=== PATIENT | female | born 1935 | race Caucasian/White ===

== ENCOUNTER 2020-05-22 15:03 | Observation (INO) | payer MEDICARE, BC ==
[2020-05-22] MEDS ORDERED: ONDANSETRON 4 MG/2 ML VIAL IVP STA ×2 (15:23→16:52)
--- NOTE | 2020-05-22 15:45 | ED ---
Fall HPI - General Chief Complaint: Fall Stated Complaint: fall Time Seen by Provider: 05/22/20 15:05 Source: patient, EMS Mode of arrival: EMS - History of Present Illness Initial Comments: This patient is an 84-year-old woman coming by ambulance to be evaluated after she had fallen approximately 2 steps from a stepstool. The patient states that she fell backward, landing on her buttocks. She then tipped backward and struck the back of her head. There was no loss of consciousness. She is complaining of bilateral low back pain indicating the lumbar area. She denies any weakness or numbness distal. There was no loss continence. No saddle anesthesia. MD Complaint: fall -: minutes(s) Fall From: other (From a stepstool) When Fall Occurred: [address] Fall Occurred: home Loss of Consciousness: none Prolonged Down Time?: no Symptoms Prior to Fall: none Location: back Severity: moderate Quality: aching Associated Symptoms: denies - Related Data Home Medications Medication Instructions Recorded Confirmed Apixaban [Eliquis] 2.5 mg PO BID 05/22/20 05/22/20 Calcium W/Vitamin D3(Unknown) 1 tab PO DAILY 05/22/20 05/22/20 Flecainide Acetate [Tambocor] 100 mg PO BID 05/22/20 05/22/20 Fluticasone/Vilanterol [Breo 1 puff INHALATION RT-HS 05/22/20 05/22/20 Ellipta 200-25 Mcg INH] Loratadine [Claritin] 10 mg PO DAILY 05/22/20 05/22/20 Metoprolol Tartrate [Lopressor] 50 mg PO BID 05/22/20 05/22/20 Multivitamins, Thera [Multivitamin 1 tab PO DAILY 05/22/20 05/22/20 (formulary)] amLODIPine [Norvasc] 10 mg PO DAILY 05/22/20 05/22/20 polyethylene glycoL 3350 [Miralax] 17 gm PO DAILY 05/22/20 05/22/20 Previous Rx's Medication Instructions Recorded Hydrocodone/Acetaminophen [[place] 1 each PO Q6HR PRN #15 tab 05/22/20 5-325] Allergies Allergy/AdvReac Type Severity Reaction Status Date / Time Iodinated Contrast Media Allergy Anaphylaxis Verified 05/22/20 17:13 Sulfa (Sulfonamide Allergy Rash/Hives Verified 05/22/20 17:13 Antibiotics) sulfamethoxazole Allergy Rash/Hives Verified 05/22/20 17:13 [From Bactrim] trimethoprim [From Bactrim] Allergy Rash/Hives Verified 05/22/20 17:13 diphenhydramine AdvReac Lethargic Verified 05/22/20 17:13 [From Benadryl] melatonin AdvReac Lethargic Verified 05/22/20 17:13 Review of Systems ROS Statement: Those systems with pertinent positive or pertinent negative responses have been documented in the HPI. ROS Other: All systems not noted in ROS Statement are negative. Constitutional: Denies: fever, chills Eyes: Denies: vision change ENT: Denies: epistaxis Respiratory: Denies: cough, dyspnea Cardiovascular: Denies: chest pain, palpitations, edema, syncope Gastrointestinal: Denies: abdominal pain, vomiting, diarrhea Genitourinary: Denies: dysuria, frequency, hematuria Musculoskeletal: Reports: as per HPI, back pain Skin: Denies: rash Neurological: Denies: headache, weakness, numbness, paresthesias Past Medical History Past Medical History: Atrial Fibrillation, COPD, Hypertension History of Any Multi-Drug Resistant Organisms: None Reported Past Surgical History: Section, Hysterectomy, Pacemaker Smoking Status: Current every day smoker Past Alcohol Use History: Occasional Past Drug Use History: None Reported General Exam Limitations: no limitations General appearance: alert, in no apparent distress Head exam: Present: atraumatic, normocephalic Eye exam: Present: normal appearance. Absent: scleral icterus, conjunctival injection ENT exam: Present: normal oropharynx Neck exam: Present: normal inspection, full ROM. Absent: tenderness Respiratory exam: Present: normal lung sounds bilaterally. Absent: respiratory distress, wheezes, rales, rhonchi, stridor, chest wall tenderness Cardiovascular Exam: Present: irregular rhythm, normal heart sounds. Absent: systolic murmur, diastolic murmur, rubs, gallop GI/Abdominal exam: Present: soft. Absent: distended, tenderness, guarding, rebound, rigid, mass Extremities exam: Present: normal inspection, normal capillary refill. Absent: pedal edema, calf tenderness Back exam: Present: normal inspection, paraspinal tenderness, vertebral tenderness (Lumbar). Absent: CVA tenderness (R), CVA tenderness (L) Neurological exam: Present: alert, oriented X3, CN II-XII intact. Absent: motor sensory deficit Skin exam: Present: warm, dry, intact, normal color. Absent: rash Course Vital Signs 05/22/20 15:05 Temperature 97.6 F Pulse Rate 86 Respiratory 17 Rate Blood Pressure 138/74 O2 Sat by Pulse 90 L Oximetry Medical Decision Making - Lab Data Result diagrams: 05/22/20 15:46 05/22/20 15:46 Lab Results 05/22/20 05/22/20 05/22/20 Range/Units 15:46 15:46 15:46 WBC 15.1 H (3.8-10.6) k/uL RBC 4.19 (3.80-5.40) m/uL Hgb 13.3 (11.4-16.0) gm/dL Hct 39.4 (34.0-46.0) % MCV 94.2 (80.0-100.0) fL MCH 31.8 (25.0-35.0) pg MCHC 33.8 (31.0-37.0) g/dL RDW 13.1 (11.5-15.5) % Plt Count 252 (150-450) k/uL MPV 7.3 Neutrophils % 80 % Lymphocytes % 12 % Monocytes % 5 % Eosinophils % 1 % Basophils % 1 % Neutrophils # 12.0 H (1.3-7.7) k/uL Lymphocytes # 1.8 (1.0-4.8) k/uL Monocytes # 0.7 (0-1.0) k/uL Eosinophils # 0.2 (0-0.7) k/uL Basophils # 0.1 (0-0.2) k/uL PT 11.2 (9.0-12.0) sec INR 1.1 (<1.2) APTT 25.2 (22.0-30.0) sec Sodium (137-145) mmol/L Potassium (3.5-5.1) mmol/L Chloride (98-107) mmol/L Carbon Dioxide (22-30) mmol/L Anion Gap mmol/L BUN (7-17) mg/dL Creatinine (0.52-1.04) mg/dL Est GFR (CKD-EPI)AfAm (>60 ml/min/1.73 sqM) Est GFR (CKD-EPI)NonAf (>60 ml/min/1.73 sqM) Glucose (74-99) mg/dL Plasma Lactic Acid Price (0.7-2.0) mmol/L Calcium (8.4-10.2) mg/dL Total Bilirubin (0.2-1.3) mg/dL AST (14-36) U/L ALT (4-34) U/L Alkaline Phosphatase (38-126) U/L Troponin I (0.000-0.034) ng/mL Total Protein (6.3-8.2) g/dL Albumin (3.5-5.0) g/dL Urine Color Light Yellow Urine Appearance Cloudy H (Clear) Urine pH 7.5 (5.0-8.0) Ur Specific Swiss 1.010 (1.001-1.035) Urine Protein Negative (Negative) Urine Glucose (UA) Negative (Negative) Urine Ketones 1+ H (Negative) Urine Blood Small H (Negative) Urine Nitrite Negative (Negative) Urine Bilirubin Negative (Negative) Urine Urobilinogen <2.0 (<2.0) mg/dL Ur Leukocyte Esterase Small H (Negative) Urine RBC 18 H (0-5) /hpf Urine WBC 8 H (0-5) /hpf Ur Squamous Epith Cells 1 (0-4) /hpf Urine Bacteria Few H (None) /hpf Urine Opiates Screen Detected H (NotDetected) Ur Oxycodone Screen Not Detected (NotDetected) Urine Methadone Screen Not Detected (NotDetected) Ur Propoxyphene Screen Not Detected (NotDetected) Ur Barbiturates Screen Not Detected (NotDetected) U Tricyclic Antidepress Not Detected (NotDetected) Ur Phencyclidine Scrn Not Detected (NotDetected) Ur Amphetamines Screen Not Detected (NotDetected) U Methamphetamines Scrn Not Detected (NotDetected) U Benzodiazepines Scrn Not Detected (NotDetected) Urine Cocaine Screen Not Detected (NotDetected) U Marijuana (THC) Screen Not Detected (NotDetected) Serum Alcohol mg/dL Blood Type Blood Type Recheck Bld Type Recheck Status Antibody Screen Spec Expiration Date 05/22/20 05/22/20 05/22/20 Range/Units 15:46 15:46 15:46 WBC (3.8-10.6) k/uL RBC (3.80-5.40) m/uL Hgb (11.4-16.0) gm/dL Hct (34.0-46.0) % MCV (80.0-100.0) fL MCH (25.0-35.0) pg MCHC (31.0-37.0) g/dL RDW (11.5-15.5) % Plt Count (150-450) k/uL MPV Neutrophils % % Lymphocytes % % Monocytes % % Eosinophils % % Basophils % % Neutrophils # (1.3-7.7) k/uL Lymphocytes # (1.0-4.8) k/uL Monocytes # (0-1.0) k/uL Eosinophils # (0-0.7) k/uL Basophils # (0-0.2) k/uL PT (9.0-12.0) sec INR (<1.2) APTT (22.0-30.0) sec Sodium 128 L (137-145) mmol/L Potassium 3.6 (3.5-5.1) mmol/L Chloride 97 L (98-107) mmol/L Carbon Dioxide 24 (22-30) mmol/L Anion Gap 7 mmol/L BUN 15 (7-17) mg/dL Creatinine 0.61 (0.52-1.04) mg/dL Est GFR (CKD-EPI)AfAm >90 (>60 ml/min/1.73 sqM) Est GFR (CKD-EPI)NonAf 84 (>60 ml/min/1.73 sqM) Glucose 138 H (74-99) mg/dL Plasma Lactic Acid Price (0.7-2.0) mmol/L Calcium 8.9 (8.4-10.2) mg/dL Total Bilirubin 0.5 (0.2-1.3) mg/dL AST 34 (14-36) U/L ALT 18 (4-34) U/L Alkaline Phosphatase 158 H (38-126) U/L Troponin I <0.012 (0.000-0.034) ng/mL Total Protein 7.4 (6.3-8.2) g/dL Albumin 4.2 (3.5-5.0) g/dL Urine Color Urine Appearance (Clear) Urine pH (5.0-8.0) Ur Specific Swiss (1.001-1.035) Urine Protein (Negative) Urine Glucose (UA) (Negative) Urine Ketones (Negative) Urine Blood (Negative) Urine Nitrite (Negative) Urine Bilirubin (Negative) Urine Urobilinogen (<2.0) mg/dL Ur Leukocyte Esterase (Negative) Urine RBC (0-5) /hpf Urine WBC (0-5) /hpf Ur Squamous Epith Cells (0-4) /hpf Urine Bacteria (None) /hpf Urine Opiates Screen (NotDetected) Ur Oxycodone Screen (NotDetected) Urine Methadone Screen (NotDetected) Ur Propoxyphene Screen (NotDetected) Ur Barbiturates Screen (NotDetected) U Tricyclic Antidepress (NotDetected) Ur Phencyclidine Scrn (NotDetected) Ur Amphetamines Screen (NotDetected) U Methamphetamines Scrn (NotDetected) U Benzodiazepines Scrn (NotDetected) Urine Cocaine Screen (NotDetected) U Marijuana (THC) Screen (NotDetected) Serum Alcohol <10 mg/dL Blood Type O Positive Blood Type Recheck O Pos Bld Type Recheck Status No Antibody Screen NEGATIVE Spec Expiration Date 05/25/2020 - 234505/22/20 Range/Units 15:46 WBC (3.8-10.6) k/uL RBC (3.80-5.40) m/uL Hgb (11.4-16.0) gm/dL Hct (34.0-46.0) % MCV (80.0-100.0) fL MCH (25.0-35.0) pg MCHC (31.0-37.0) g/dL RDW (11.5-15.5) % Plt Count (150-450) k/uL MPV Neutrophils % % Lymphocytes % % Monocytes % % Eosinophils % % Basophils % % Neutrophils # (1.3-7.7) k/uL Lymphocytes # (1.0-4.8) k/uL Monocytes # (0-1.0) k/uL Eosinophils # (0-0.7) k/uL Basophils # (0-0.2) k/uL PT (9.0-12.0) sec INR (<1.2) APTT (22.0-30.0) sec Sodium (137-145) mmol/L Potassium (3.5-5.1) mmol/L Chloride (98-107) mmol/L Carbon Dioxide (22-30) mmol/L Anion Gap mmol/L BUN (7-17) mg/dL Creatinine (0.52-1.04) mg/dL Est GFR (CKD-EPI)AfAm (>60 ml/min/1.73 sqM) Est GFR (CKD-EPI)NonAf (>60 ml/min/1.73 sqM) Glucose (74-99) mg/dL Plasma Lactic Acid Price 1.5 (0.7-2.0) mmol/L Calcium (8.4-10.2) mg/dL Total Bilirubin (0.2-1.3) mg/dL AST (14-36) U/L ALT (4-34) U/L Alkaline Phosphatase (38-126) U/L Troponin I (0.000-0.034) ng/mL Total Protein (6.3-8.2) g/dL Albumin (3.5-5.0) g/dL Urine Color Urine Appearance (Clear) Urine pH (5.0-8.0) Ur Specific Swiss (1.001-1.035) Urine Protein (Negative) Urine Glucose (UA) (Negative) Urine Ketones (Negative) Urine Blood (Negative) Urine Nitrite (Negative) Urine Bilirubin (Negative) Urine Urobilinogen (<2.0) mg/dL Ur Leukocyte Esterase (Negative) Urine RBC (0-5) /hpf Urine WBC (0-5) /hpf Ur Squamous Epith Cells (0-4) /hpf Urine Bacteria (None) /hpf Urine Opiates Screen (NotDetected) Ur Oxycodone Screen (NotDetected) Urine Methadone Screen (NotDetected) Ur Propoxyphene Screen (NotDetected) Ur Barbiturates Screen (NotDetected) U Tricyclic Antidepress (NotDetected) Ur Phencyclidine Scrn (NotDetected) Ur Amphetamines Screen (NotDetected) U Methamphetamines Scrn (NotDetected) U Benzodiazepines Scrn (NotDetected) Urine Cocaine Screen (NotDetected) U Marijuana (THC) Screen (NotDetected) Serum Alcohol mg/dL Blood Type Blood Type Recheck Bld Type Recheck Status Antibody Screen Spec Expiration Date - EKG Data -: EKG Interpreted by Me EKG shows normal: axis (Left axis deviation), intervals (QRS duration 116 ms. QTC 533, prolonged. ), QRS complexes (Incomplete right bundle branch block) Rate: normal (85 bpm) Interpretation: nonspecific ST-T wave changes, other (Atrial fibrillation) Disposition Clinical Impression: Fall, Compression fracture of L1 lumbar vertebra Disposition: ADMITTED IP TO THIS HOSP Condition: Good Instructions (If sedation given, give patient instructions): Vertebral Compression Fracture (ED), Fall Prevention for Older Adults (ED) Prescriptions: Hydrocodone/Acetaminophen [Zahl 5-325] 1 each PO Q6HR PRN #15 tab PRN Reason: Pain Is patient prescribed a controlled substance at d/c from ED?: Yes When asked, does pt state using other controlled substances?: No If prescribed controlled substance>3 days was MAPS reviewed?: Prescribed <3 Days If opioid is for acute pain is fill amount 7 days or less?: Yes If Rx opioid, was Start Talking consent form obtained?: Yes Referrals: Yamile Dinh MD [Primary Care Provider] - 1-2 days Saji Booker DO [Doctor of Osteopathic Medicine] - 1-2 days
--- NOTE | 2020-05-22 15:47 | CT ---
EXAMINATION TYPE: CT brain andre hayward con DATE OF EXAM: 05/22/2020 COMPARISON: None available. HISTORY: fall with head and neck pain/injury. CT DLP: 1299.7 mGycm Automated exposure control for dose reduction was used. TECHNIQUE: CT scan of the head and cervical spine are performed without contrast. FINDINGS: There is no acute intracranial hemorrhage, mass effect, or midline shift identified. The ventricles and sulci are within normal limits in size. There is small right posterior parietal lobe encephalomalacia. Otherwise mild to moderate white matter disease. The globes are intact and the visu alized sinuses are clear. Cervical spine is visualized in its entirety from C1 through upper thoracic levels and demonstrates s atisfactory alignment without evidence of acute fracture or dislocation. Prevertebral soft tissue ap pears within normal limits. The C1-C2 articulation is unremarkable. IMPRESSION: 1. There is no acute fracture or dislocation evident in the cervical spine. 2. No acute intracranial hemorrhage, mass effect, or midline shift is seen.
[2020-05-22 15:52] LABS: Basophils # (A) 0.1 k/uL (0-0.2); Basophils % (A) 1 %; Eosinophils # (A) 0.2 k/uL (0-0.7); Eosinophils % (A) 1 %; HCT 39.4 % (34.0-46.0); HGB 13.3 gm/dL (11.4-16.0); Lymphocytes # (A) 1.8 k/uL (1.0-4.8); Lymphocytes % (A) 12 %; MCH 31.8 pg (25.0-35.0); MCHC 33.8 g/dL (31.0-37.0); MCV 94.2 fL (80.0-100.0); Mean Platelet Volume 7.3; Monocytes # (A) 0.7 k/uL (0-1.0); Monocytes % (A) 5 %; Neutrophils % (A) 80 %; Platelet Count 252 k/uL (150-450); RBC 4.19 m/uL (3.80-5.40); RDW 13.1 % (11.5-15.5); WBC 15.1 k/uL (3.8-10.6)
--- NOTE | 2020-05-22 15:53 | XR ---
EXAMINATION TYPE: XR chest 1V portable DATE OF EXAM: 05/22/2020 COMPARISON: 08/06/2018. HISTORY: Pain status post fall. TECHNIQUE: Single frontal view of the chest is obtained. FINDINGS: There is no focal air space opacity, pleural effusion, or pneumothorax seen. The cardiac silhouette size is within normal limits. Left pacemaker seen. The osseous structures are intact. IMPRESSION: No acute process.
--- NOTE | 2020-05-22 15:54 | XR ---
RESULT: HISTORY: Trauma TECHNIQUE: AP view of pelvis. COMPARISON: None. FINDINGS: There is no acute fracture or dislocation. There are mild degenerative changes at the bilateral hips. The sacroiliac joints are patent. IMPRESSION: No acute osseous abnormality.
[2020-05-22 16:00] LABS: INR 1.1 (<1.2); Partial Thromboplastin Time 25.2 sec (22.0-30.0); Prothrombin Time 11.2 sec (9.0-12.0)
[2020-05-22 16:03] LABS: ALT 18 U/L (4-34); AST 34 U/L (14-36); African American GFR (CKD) >90 (>60 ml/min/1.73 sqM); Albumin 4.2 g/dL (3.5-5.0); Alcohol <10 mg/dL; Alkaline Phosphatase 158 U/L (38-126); Anion Gap 7 mmol/L; Blood Urea Nitrogen 15 mg/dL (7-17); Calcium 8.9 mg/dL (8.4-10.2); Carbon Dioxide 24 mmol/L (22-30); Chloride 97 mmol/L (98-107); Glucose 138 mg/dL (74-99); Non-African American GFR(CKD) 84 (>60 ml/min/1.73 sqM); Potassium 3.6 mmol/L (3.5-5.1); Sodium 128 mmol/L (137-145); Total Bilirubin 0.5 mg/dL (0.2-1.3); Total Protein 7.4 g/dL (6.3-8.2)
[2020-05-22] MEDS ORDERED: fentaNYL (PF) 50 MCG/ML 2 ML AMP IV STA (16:52)
--- NOTE | 2020-05-22 17:05 | XR ---
Result: History: Low back pain status post fall. Comparison: None available. Technique: 3 views of the lumbar spine. Findings: The bone mineralization is age-appropriate. Images of the lumbar spine demonstrate 5 lumbar-type vertebrae. There is age-indeterminate mild L1 c ompression fracture. There is grade 1 anterolisthesis of L5 on S1. There is suggestion of L4 and L5 p ars defects. There is mild to moderate disc height narrowing at L3-S1. There is moderate facet arthro annabel in the lower lumbar spine. Impression: Age-indeterminate L1 compression fracture. Mild to moderate lumbar spondylosis with grade 1 anterolisthesis at L5-S1.
[2020-05-22 18:07] LABS: Appearance,Urine Cloudy (Clear); Bacteria,Urine Few /hpf; Bilirubin,Urine Negative (Negative); Blood,Urine Small (Negative); Color,Urine Light Yellow; Glucose,Urine (UA) Negative (Negative); Ketones,Urine 1+ (Negative); Leukocyte Esterase,Urine Small (Negative); Nitrite,Urine Negative (Negative); PH, Urine 7.5 (5.0-8.0); Protein,Urine Negative (Negative); RBC,Urine 18 /hpf (0-5); Squamous Epithelial Cell,Urine 1 /hpf (0-4); Urobilinogen,Urine <2.0 mg/dL (<2.0); WBC,Urine 8 /hpf (0-5)
[2020-05-22 18:16] LABS: Amphetamine Screen,Urine Not Detected (NotDetected); Barbiturate Screen,Urine Not Detected (NotDetected); Benzodiazepines Screen,Urine Not Detected (NotDetected); Cocaine Screen,Urine Not Detected (NotDetected); Methadone Screen, Urine Not Detected (NotDetected); Opiate Screen,Urine Detected (NotDetected); Oxycodone Screen, Urine Not Detected (NotDetected); Phencyclidine Screen,Urine Not Detected (NotDetected); Tricyclic Antidepressant,Urine Not Detected (NotDetected); Urn Cannabinoid Scrn Not Detected (NotDetected)
[2020-05-22] MEDS ORDERED: MORPHINE SULFATE 4 MG/ML SYRINGE IV PRN (19:27)
[2020-05-22] MEDS ORDERED: Acetaminophen-Codeine 300-30mg TAB PO PRN (19:27)
[2020-05-22] MEDS ORDERED: ONDANSETRON 4 MG/2 ML VIAL IVP PRN (19:27)
[2020-05-22] MEDS ORDERED: PROCHLORPERAZINE 5 MG TAB PO PRN (19:27)
[2020-05-22] MEDS ORDERED: NALOXONE 0.4 MG/ML 1 ML VIAL IV PRN (19:27)
[2020-05-22] MEDS: SODIUM CHLORIDE 0.9% 1,000 ML IV SCH (19:58)
[2020-05-22] MEDS: METOPROLOL TARTRATE 50 MG TAB PO SCH (20:45)
[2020-05-22] MEDS: APIXABAN 2.5 MG TABLET PO SCH (20:45)
[2020-05-22] MEDS: SYMBICORT 160-4.5 MCG INHALER INHALATION SCH (20:45)
[2020-05-22] MEDS: FLECAINIDE 50 MG TAB PO SCH (20:45)
[2020-05-22] MEDS: FAMOTIDINE 20 MG TAB PO SCH (20:46)
[2020-05-22] MEDS: ACETAMINOPHEN TAB 325 MG TAB PO PRN (23:35)
--- NOTE | 2020-05-23 09:53 | P.HPOR ---
History of Present Illness H&P Date: 05/23/20 Chief Complaint: Fall with low back pain 84-year-old female who presents emergency department after a fall from standing onto her back and buttock region. Patient states immediate pain in her back as well as buttock region. She denies any pain going down her legs. She denies bowel or bladder issues she denies any perineal numbness or tingling. She denies blunt head trauma or loss of consciousness with the fall. She states no weakness in her legs. She states that her low back hurts. She denies any other fevers chills shortness breath or chest pain at this time. She does state some nausea vomiting this morning as she feels that the medication is causing this. When she is up and about her back hurts when she is lying flat she feels comfortable at this time. Review of Systems 14 points review of systems completed and as stated in HPI, all other systems reviewed are negative. Past Medical History Past Medical History: Atrial Fibrillation, COPD, Hypertension History of Any Multi-Drug Resistant Organisms: None Reported Past Surgical History: Section, Hysterectomy, Pacemaker Type of Cardiac Device: Unknown Device Placement Date:: 2014 Smoking Status: Current every day smoker Past Alcohol Use History: Occasional Past Drug Use History: None Reported Medications and Allergies Home Medications Medication Instructions Recorded Confirmed Type Apixaban [Eliquis] 2.5 mg PO BID 05/22/20 05/22/20 History Calcium W/Vitamin D3(Unknown) 1 tab PO DAILY 05/22/20 05/22/20 History Flecainide Acetate [Tambocor] 100 mg PO BID 05/22/20 05/22/20 History Fluticasone/Vilanterol [Breo 1 puff INHALATION RT-HS 05/22/20 05/22/20 History Ellipta 200-25 Mcg INH] Hydrocodone/Acetaminophen [[place] 1 each PO Q6HR PRN #15 tab 05/22/20 Rx 5-325] Loratadine [Claritin] 10 mg PO DAILY 05/22/20 05/22/20 History Metoprolol Tartrate [Lopressor] 50 mg PO BID 05/22/20 05/22/20 History Multivitamins, Thera [Multivitamin 1 tab PO DAILY 05/22/20 05/22/20 History (formulary)] amLODIPine [Norvasc] 10 mg PO DAILY 05/22/20 05/22/20 History polyethylene glycoL 3350 [Miralax] 17 gm PO DAILY 05/22/20 05/22/20 History Allergies Allergy/AdvReac Type Severity Reaction Status Date / Time Iodinated Contrast Media Allergy Anaphylaxis Verified 05/22/20 17:13 Sulfa (Sulfonamide Allergy Rash/Hives Verified 05/22/20 17:13 Antibiotics) sulfamethoxazole Allergy Rash/Hives Verified 05/22/20 17:13 [From Bactrim] trimethoprim [From Bactrim] Allergy Rash/Hives Verified 05/22/20 17:13 diphenhydramine AdvReac Lethargic Verified 05/22/20 17:13 [From Benadryl] melatonin AdvReac Lethargic Verified 05/22/20 17:13 Physical Examination Osteopathic Statement: *. No significant issues noted on an osteopathic structural exam other than those noted in the History and Physical/Consult. GEN: AOX3, NAD VSS Inspection: Laying in her bed somewhat nauseated secondary to the medication Palpation: To palpation of the lumbar and thoracolumbar region. She has positive ballottement sign in this area. No tennis palpation of the cervical or thoracic spine. No tennis palpation of the sacrum pelvis or hips. Motor: 5/5 shoulder abd/EF/EE/WF/intrinsics 5/5 DF/PF/EHL/FHL/HF/KE/KF Full painless range of motion of bilateral upper extremities all major joints for painless range of motion bilateral lower extremities all major joints or crepitance. Reflexes: 2/4 DTR all upper and LE Sensation intact to light touch in C5-T1 as well as L2-S1 distribution Roe's: Negative bilaterally Clonus: Negative bilaterally Babinski: Negative bilaterally Cranial nerves II through XII are grossly intact Results CT of the head and C-spine as well as lumbar films and pelvis films are reviewed. CT of the head and C-spine reveal no fracture dislocation or other bony abnormalities. There is no severe stenosis noted throughout. Lumbar films AP and lateral show L1 compression fracture which is indeterminate age. Overall alignment is fairly well maintained there is no acute kyphotic disease. There is no fractures or dislocations else were noted. There is suggestion of L4 5 and L5-S1 spondylolysis however is difficult to determine via these films. AP pelvis demonstrate congruent from last have her joints no fractures or dislocations and level pelvis. - Labs Labs: Abnormal Lab Results - Last 24 Hours (Table) 05/22/20 05/22/20 05/22/20 Range/Units 15:46 15:46 15:46 WBC 15.1 H (3.8-10.6) k/uL Neutrophils # 12.0 H (1.3-7.7) k/uL Sodium 128 L (137-145) mmol/L Chloride 97 L (98-107) mmol/L Glucose 138 H (74-99) mg/dL Alkaline Phosphatase 158 H (38-126) U/L Urine Appearance Cloudy H (Clear) Urine Ketones 1+ H (Negative) Urine Blood Small H (Negative) Ur Leukocyte Esterase Small H (Negative) Urine RBC 18 H (0-5) /hpf Urine WBC 8 H (0-5) /hpf Urine Bacteria Few H (None) /hpf Urine Opiates Screen Detected H (NotDetected) H & H 05/22/20 Range/Units 15:46 Hgb 13.3 (11.4-16.0) gm/dL Hct 39.4 (34.0-46.0) % Coagulation 05/22/20 Range/Units 15:46 INR 1.1 (<1.2) Result Diagrams: 05/22/20 15:46 05/22/20 15:46 Assessment and Plan Assessment: 84-year-old female status post fall from standing with L1 compression fracture neurologically intact Plan: -Appreciate medicine management. -Pain control: Adequate at this time she states morphine is making her nauseous however -Aggressive ambulation protocol. OOB with all meals. OOB or in chair 4-5x daily. -PT/OT -TEDs, SCDs, mechanical ppx. OK for heparin today. Early ambulation is best. -GI ppx. -He T scan of the lumbar spine ordered will review -TLSO brace to be fitted and to be worn at all times when up and about -Trend labs. -Dispo: Await computed tomography scan as well as TLSO fitting Time with Patient: Greater than 30
[2020-05-23] MEDS: ACETAMINOPHEN TAB 325 MG TAB PO PRN ×2 (11:25→16:11)
[2020-05-23] MEDS: METOPROLOL TARTRATE 50 MG TAB PO SCH ×2 (11:25→20:17)
[2020-05-23] MEDS: APIXABAN 2.5 MG TABLET PO SCH ×2 (11:25→20:17)
[2020-05-23] MEDS: amLODIPine 10 MG TAB PO SCH (11:25)
[2020-05-23] MEDS: FLECAINIDE 50 MG TAB PO SCH ×2 (11:25→20:17)
[2020-05-23] MEDS: FAMOTIDINE 20 MG TAB PO SCH (11:25)
[2020-05-23] MEDS: polyethylene glycoL 3350 17 GM POWD.PACK PO SCH (11:26)
--- NOTE | 2020-05-23 11:30 | CT ---
EXAMINATION TYPE: CT lumbar spine wo con DATE OF EXAM: 05/23/2020 11:12 AM COMPARISON: Lumbar spine x-ray from yesterday. CT abdomen and pelvis February 11, 2012 HISTORY: Low back pain post fall yesterday CT DLP: 577.9 mGycm Automated exposure control for dose reduction was used. Unenhanced CT of the lumbar spine was performed. Bone and soft tissue window settings are submitted as well as coronal and sagittal reconstructions. Corresponding to recent x-ray there is [id number] height loss involving the L1 vertebra which i s new from August 06, 2018 CT. This vertebra has diffuse sclerosis without linear lucency suggesting xie bacute or chronic fracture. There is posterior retropulsion along the superior two thirds of the vert ebra into the anterior spinal canal measuring 6 to 7 mm sagittal image 38. There is grade 1 anterolis thesis of L5 on S1. Vertebral body heights and disc space heights are maintained. At L3-L4 level there is moderate disc space narrowing effacing the anterior thecal sac on sagittal im age 36 and axial image 36. Axial images L4-L5 level there is mild/moderate broad disc bulge and mild to moderate facet degenerat fabio changes and ligament flavum hypertrophy pressing posterior lateral thecal sac on sagittal image 3 6 and axial image 46. Axial images L5-S1 level there is advanced facet arthropathy bilaterally and ligamentum flavum hypert rophy present control clerk repairs lateral thecal sac. The spondylolisthesis with moderate broad-based posterior di sc protrusion effaces the anterior thecal sac approximately 54. There is moderate bilateral inferior neural foraminal narrowing. There is increased focal AAA from 2012 CT m now measuring 4.2 x 4.2 cm image 33. Aneurysm measures up to 4.4 cm transversely inferior to the axial image 35 . Moderate to severe calcified plaque extends into branch vessels. IMPRESSION: 1. Confirmation of mild to moderate compression type fracture at L1 level without lucent component to suggest acute fracture. Fracture subacute or chronic in age and new from August 06, 2018 chest x-ray. Posterior ossific retropulsion up to 7 mm into the anterior spinal canal is noted. 2. Enlarging abdominal aortic aneurysm up to 4.4 cm on current study. At minimum, annual ultrasound s urveillance is advised.
[2020-05-23] MEDS: SYMBICORT 160-4.5 MCG INHALER INHALATION SCH ×2 (12:00→20:23)
--- NOTE | 2020-05-23 15:42 | P.PN ---
Progress Note - Text Progress Note Date: 05/23/20 CT reviewed. This demonstrates a L1 A4, N0 burst fracture with mild local kyphosis. Mild retropulsion with no acute central stenosis noted. Overall alignment is fairly well maintained. There are no other fractures or dislocations noted.
[2020-05-23] MEDS: SODIUM CHLORIDE 0.9% 1,000 ML IV SCH (20:16)
[2020-05-24] MEDS: ACETAMINOPHEN TAB 325 MG TAB PO PRN ×3 (03:39→14:19)
--- NOTE | 2020-05-24 07:48 | P.PN ---
Subjective Progress Note Date: 05/24/20 Principal diagnosis: L1 burst fx Patient seen and examined shes fairly painful today everyone sitting up and eating breakfast she doesnt really have a lot of pain is mostly during the transition phases. She states that the TLSO does not fit her very well and she has to take it off to go to the bathroom which bothers her. She denies any numbness or tingling shit and eyes and fevers chills her breath or chest pain. She denies anyny weakness in her lower extremities. Objective - Vital Signs Vital signs: Vital Signs Temp 99.1 F 05/24/20 03:00 Pulse 60 05/24/20 03:00 Resp 18 05/24/20 03:00 BP 162/61 05/24/20 03:00 Pulse Ox 96 05/24/20 03:00 Intake & Output 05/23/20 05/24/20 05/24/20 18:59 06:59 18:59 Other: Voiding Method Toilet # Voids 6 2 - Exam patient is alert and oriented times three appears well nourish well hydrated and as a no acute distress. She does not appear septic. Shes sitting up eating breakfast. She has normal judgment affect and mood. Shes able to answer all questions appropriately and follow commands. Shes been up and about and sits up on her own power as well as stands up under her own power and ambulates with a walker. She denies any numbness or tingling her sensations and tech L2 to S one. She has 2/4 DTRs in all upper and lower extremities. 5/5 strength and upper extremitys and lower extremities bilaterally however patient states that she is dropping things. She has a negative Hoffmans bilaterally negative clonus by later than negative babinski bilaterally.cranial nerves two through 12 are grossly intact. She has positive allotments around the L one region no crepitance no step off no tennis to palpation of the cervicothoracic spine or lower lumbar spine sacral area. - Labs CBC & Chem 7: 05/22/20 15:46 05/22/20 15:46 Assessment and Plan Assessment: 84-year-old female status post fall from standing with L1 A4, N0 burst fracture neurologically intact Plan: Medical management TLSO WHEN UP pain control gi dvt ppx PTOT EVAL I discussed at length the different options for the patient including non- surgical surgical options. She states at this time she does not want surgery however she is unable to comply with the TLSO and it does not fit her very well. In this case we could do a percutaneous procedure for stabilization of her elbow on Sánchez fracture which may help with pain as well as stabilization however she states shes not sure she wants surgery and would like to talk to her family. We will allow her to do this we will have PT and OT evaluate her and make recommendations for her. We will discuss the options again later today after her breakfast. We await medical consultation. She will either need placement due to her living alone with no help or home with home care should should be able to pending PT recommendations.
[2020-05-24 08:10] VITALS: BP 149/68; PULSE 83; RESP 16; TEMP 99
[2020-05-24] MEDS: polyethylene glycoL 3350 17 GM POWD.PACK PO SCH (09:01)
[2020-05-24] MEDS: FLECAINIDE 50 MG TAB PO SCH ×2 (09:02→09:04)
[2020-05-24] MEDS: APIXABAN 2.5 MG TABLET PO SCH (09:03)
[2020-05-24] MEDS: FAMOTIDINE 20 MG TAB PO SCH ×2 (09:03→09:21)
[2020-05-24] MEDS: METOPROLOL TARTRATE 50 MG TAB PO SCH (09:04)
[2020-05-24] MEDS: amLODIPine 10 MG TAB PO SCH (09:08)
[2020-05-24] MEDS: SYMBICORT 160-4.5 MCG INHALER INHALATION SCH (09:12)
--- NOTE | 2020-05-24 09:19 | P.CONS ---
History of Present Illness - Reason for Consult Consult date: 05/23/20 - History of Present Illness Kourtney Moss, is an 84-year-old female who presented to [facility] emergency room with a chief complaint of back pain patient stated that she fell backward off of a step stool and landed on her back she denies any loss of consciousness she was having severe pain in the lumbar area she called EMS and was brought into emergency room. Patient was evaluated in emergency room vi luciano examination on presentation revealed a temperature of 97.6 pulse 86 respirations 17 blood pressure 138/74 pulse ox 90% on room air, laboratory data revealed a white blood count of 15.1 hemoglobin 13.3 platelet count 252 sodium 128 potassium 3.6 chloride 97 glucose 138 BUN 15 creatinine 0.61 urine analysis revealed small blood with small leukocyte esterase and 8 white blood cells in high power field. And of the brain and the cervical spine did not reveal any acute abnormality, chest x-ray did not reveal any abnormality, lumbar spine x- ray and computed tomography scan of the lumbar spine revealed evidence of subacute compression fracture of L1, also incidentally revealed an enlarging abdominal aortic aneurysm up to 4.4 cm. Patient was admitted to the hospital under orthopedic surgery medical consultation was requested for management while hospitalized. Her past medical history is significant for history of hypertension, history of atrial fibrillation, history of abdominal aortic aneurysm noted since 2015, history of sick sinus syndrome with history of pacemaker placement. Patient stated that she has one alcoholic cocktail daily and she smokes a few cigarettes per day. On review of system patient is complaining of low back pain otherwise she denies any complaints there is no fever or chills no headache or dizziness no chest pain no shortness of breath no cough no nausea or vomiting no abdominal pain no diarrhea no blood in the stools no burning with urination no frequency or urgency and no hematuria. Past Medical History Past Medical History: Atrial Fibrillation, COPD, Hypertension History of Any Multi-Drug Resistant Organisms: None Reported Past Surgical History: Section, Hysterectomy, Pacemaker Type of Cardiac Device: Unknown Device Placement Date:: 2014 Smoking Status: Current every day smoker Past Alcohol Use History: Occasional Past Drug Use History: None Reported Medications and Allergies Home Medications Medication Instructions Recorded Confirmed Type Apixaban [Eliquis] 2.5 mg PO BID 05/22/20 05/22/20 History Calcium W/Vitamin D3(Unknown) 1 tab PO DAILY 05/22/20 05/22/20 History Flecainide Acetate [Tambocor] 100 mg PO BID 05/22/20 05/22/20 History Fluticasone/Vilanterol [Breo 1 puff INHALATION RT-HS 05/22/20 05/22/20 History Ellipta 200-25 Mcg INH] Hydrocodone/Acetaminophen [[place] 1 each PO Q6HR PRN #15 tab 05/22/20 Rx 5-325] Loratadine [Claritin] 10 mg PO DAILY 05/22/20 05/22/20 History Metoprolol Tartrate [Lopressor] 50 mg PO BID 05/22/20 05/22/20 History Multivitamins, Thera [Multivitamin 1 tab PO DAILY 05/22/20 05/22/20 History (formulary)] amLODIPine [Norvasc] 10 mg PO DAILY 05/22/20 05/22/20 History polyethylene glycoL 3350 [Miralax] 17 gm PO DAILY 05/22/20 05/22/20 History Allergies Allergy/AdvReac Type Severity Reaction Status Date / Time Iodinated Contrast Media Allergy Anaphylaxis Verified 05/22/20 17:13 Sulfa (Sulfonamide Allergy Rash/Hives Verified 05/22/20 17:13 Antibiotics) sulfamethoxazole Allergy Rash/Hives Verified 05/22/20 17:13 [From Bactrim] trimethoprim [From Bactrim] Allergy Rash/Hives Verified 05/22/20 17:13 diphenhydramine AdvReac Lethargic Verified 05/22/20 17:13 [From Benadryl] melatonin AdvReac Lethargic Verified 05/22/20 17:13 Physical Exam Vitals: Vital Signs Temp Pulse Resp BP Pulse Ox 05/23/20 14:00 98.4 F 60 16 136/61 95 05/23/20 08:00 66 16 05/23/20 07:51 98.5 F 66 16 183/73 91 L 05/23/20 01:33 98.2 F 60 128/63 92 L 05/22/20 20:26 978 F H 93 139/81 93 L Intake and Output 05/23/20 05/23/20 05/23/20 06:59 14:59 22:59 Other: # Voids 1 In general patient is alert and oriented 3 in no apparent distress HEENT head normocephalic and atraumatic Neck is supple no JVD no goiter no lymphadenopathy Chest exam reveals a few scattered rhonchi no wheezing Cardiac exam reveals regular heart sounds S1 and S2 no gallops no murmurs Abdomen is soft nontender no organomegaly was normal bowel sounds Extremity exam reveals no edema no cyanosis or clubbing Neurological examination reveals no gross focal deficits Results CBC & Chem 7: 05/22/20 15:46 05/22/20 15:46 Labs: Abnormal Lab Results - Last 24 Hours (Table) 05/22/20 Range/Units 15:46 Urine Appearance Cloudy H (Clear) Urine Ketones 1+ H (Negative) Urine Blood Small H (Negative) Ur Leukocyte Esterase Small H (Negative) Urine RBC 18 H (0-5) /hpf Urine WBC 8 H (0-5) /hpf Urine Bacteria Few H (None) /hpf Urine Opiates Screen Detected H (NotDetected) Assessment and Plan Plan: 1. Fall with low back pain with computed tomography scan revealing evidence of L1 compression fracture 2. Underlying history of hypertension 3. Evidence of urinary tract infection Will treat with IV Rocephin we will check urine culture 4. Underlying history of paroxysmal atrial fibrillation 5. Underlying history of sick sinus syndrome status post pacemaker placement 6. Underlying history of abdominal aortic aneurysm measuring 4.4 cm this will need to be followed as outpatient 7. Hyponatremia will recheck labs Home medications reviewed and reordered Will follow during this admission for medical management
[2020-05-24 10:34] LABS: Basophils # (A) 0.1 k/uL (0-0.2); Basophils % (A) 0 %; Eosinophils # (A) 0.1 k/uL (0-0.7); Eosinophils % (A) 1 %; HGB 13.6 gm/dL (11.4-16.0); Lymphocytes # (A) 1.1 k/uL (1.0-4.8); Lymphocytes % (A) 10 %; MCHC 33.1 g/dL (31.0-37.0); MCV 96.8 fL (80.0-100.0); Mean Platelet Volume 7.1; Monocytes # (A) 0.8 k/uL (0-1.0); Monocytes % (A) 7 %; Neutrophils # (A) 9.2 k/uL (1.3-7.7); Neutrophils % (A) 81 %; Platelet Count 254 k/uL (150-450); RBC 4.24 m/uL (3.80-5.40); RDW 13.2 % (11.5-15.5); WBC 11.4 k/uL (3.8-10.6)
[2020-05-24 10:45] LABS: ALT 18 U/L (4-34); AST 30 U/L (14-36); African American GFR (CKD) >90 (>60 ml/min/1.73 sqM); Albumin 4.4 g/dL (3.5-5.0); Albumin/Globulin Ratio 1.3; Alkaline Phosphatase 124 U/L (38-126); Anion Gap 7 mmol/L; Blood Urea Nitrogen 11 mg/dL (7-17); Calcium 9.6 mg/dL (8.4-10.2); Carbon Dioxide 28 mmol/L (22-30); Chloride 98 mmol/L (98-107); Globulin 3.4 g/dL; Glucose 111 mg/dL (74-99); Non-African American GFR(CKD) 80 (>60 ml/min/1.73 sqM); Potassium 4.1 mmol/L (3.5-5.1); Sodium 133 mmol/L (137-145); Total Bilirubin 0.8 mg/dL (0.2-1.3); Total Protein 7.8 g/dL (6.3-8.2)
--- NOTE | 2020-05-24 12:03 | P.DS ---
Providers Date of admission: 05/22/20 19:31 Expected date of discharge: 05/24/20 Attending physician: Saji Booker DO Consults: 05/22/20 19:29 Consult Physician Routine Consulting Provider: Hany Fitzpatrick Consult Reason/Comments: Medical management Do you want consulting provider notified?: Yes Primary care physician: Yamile Dinh [facility] Course: Date of admission: [05/22/2020] Date of discharge: 05/24/2020 Admission diagnosis: L1 A4, N0 burst fracture Discharge diagnosis: Same Attending physician: Dr. Booker Surgical procedures: None Brief history: Patient is a 84-year-old female who was evaluated to [facility] on 05/22/2020 after falling at home off a stepladder. After arrival she did note discomfort in her low back region, x-rays along with computed tomography scan were done. Images demonstrated a L1 A4, N0 burst fracture, she was admitted under orthopedic care for further management and to discuss treatment options. Internal medicine was consulted for medical management. Hospital course: Patient tolerated the procedure well and was subsequently transported to orthopedic floor. Patient's orthopeidc and medical care was pr ovided daily. Patient had daily laboratory tests performed for evaluation of overall blood counts. Patient had daily physical therapy to include strengthening range of motion as well as education with walker ambulation. Treatment options were discussed with the patient, this to include both surgical and nonsurgical. She was fitted for a TLSO brace. Patient explained that she did not want surgical intervention at this time. Patient did very well with physical therapy during her inpatient stay. Patient developed no neurological deficits the bilateral upper or lower extremities. Her pain was controlled with oral medication. Plan is for discharge to home with home care. She also will have family available for any assistance. Discharge condition/disposition: Patient will be discharged home in stable condition. Discharge medications: Instructions are given on resumption of patient's normal daily medications per primary care recommendation, in addition patient will be prescribed [place] 5 mg/325 mg. Discharge instructions: 1. Recommend use of the TLSO brace when ambulating 2. Recommend use of a walker at all times when ambulating 3. Home health care will be available along with physical therapy 4. Plan for follow-up with Dr. Booker in the next 7-10 days for x-ray evaluation and clinical evaluation 5. Please contact our office, [phone] with any questions 6. If symptoms worsen, including back pain, numbness and tingling of upper or lower extremities, loss of bowel or bladder function please report immediately to the emergency room [facility] 7. Follow up with your primary care doctor 7-10 days after discharge. Patient Condition at Discharge: Good Plan - Discharge Summary New Discharge Prescriptions: New Hydrocodone/Acetaminophen [[place] 5-325] 1 each PO Q6HR PRN #15 tab PRN Reason: Pain No Action Loratadine [Claritin] 10 mg PO DAILY Fluticasone/Vilanterol [Breo Ellipta 200-25 Mcg INH] 1 puff INHALATION RT-HS polyethylene glycoL 3350 [Miralax] 17 gm PO DAILY Multivitamins, Thera [Multivitamin (formulary)] 1 tab PO DAILY Flecainide Acetate [Tambocor] 100 mg PO BID Metoprolol Tartrate [Lopressor] 50 mg PO BID Apixaban [Eliquis] 2.5 mg PO BID amLODIPine [Norvasc] 10 mg PO DAILY Calcium W/Vitamin D3(Unknown) 1 tab PO DAILY Discharge Medication List Apixaban [Eliquis] 2.5 mg PO BID 05/22/20 [History] Calcium W/Vitamin D3(Unknown) 1 tab PO DAILY 05/22/20 [History] Flecainide Acetate [Tambocor] 100 mg PO BID 05/22/20 [History] Fluticasone/Vilanterol [Breo Ellipta 200-25 Mcg INH] 1 puff INHALATION RT-HS 05/22/20 [History] Hydrocodone/Acetaminophen [[place] 5-325] 1 each PO Q6HR PRN #15 tab 05/22/20 [Rx] Loratadine [Claritin] 10 mg PO DAILY 05/22/20 [History] Metoprolol Tartrate [Lopressor] 50 mg PO BID 05/22/20 [History] Multivitamins, Thera [Multivitamin (formulary)] 1 tab PO DAILY 05/22/20 [History] amLODIPine [Norvasc] 10 mg PO DAILY 05/22/20 [History] polyethylene glycoL 3350 [Miralax] 17 gm PO DAILY 05/22/20 [History] Follow up Appointment(s)/Referral(s): Yamile Dinh MD [Primary Care Provider] - 1-2 days Saji Booker DO [Doctor of Osteopathic Medicine] - 10 Days [facility] Visiting Nurse, [NON-STAFF] - As Needed Chandni Jackson [NON-STAFF] - As Needed (TLSO back brace) Patient Instructions/Handouts: Vertebral Compression Fracture (ED), Fall Prevention for Older Adults (ED) Discharge Disposition: HOME WITH HOME HEALTH SERVICES
--- NOTE | 2020-05-24 12:06 | P.PN ---
Progress Note - Text Progress Note Date: 05/24/20 Patient was reassessed early afternoon. Patient is very eager to go home, she does not want any surgical intervention. Physical therapy did work with the patient, I spoke with him directly. She was able to do all ADLs on her own with no assistance. Her pain is controlled at this time. We did discuss follow-up with Dr. Booker in the outpatient setting in the next 7-10 days for clinical recheck. We do recommend use the TLSO brace when up and about. We also recommend use of a walker at all times with ambulation. Patient will have home health care after discharge, she also has assistance from her family. Advised patient to return immediately to the hospital she notices any worsening symptoms, this to include increasing pain, loss of bowel or bladder function, numbness or tingling of the upper or lower extremities, severe weakness of the lower legs. Our office information will be provided in the chart.
--- NOTE | 2020-05-24 13:57 | P.PN ---
Subjective Progress Note Date: 05/24/20 Diagnoses on discharge: 1. Fall with low back pain with computed tomography scan revealing evidence of L1 compression fracture 2. Underlying history of hypertension 3. Evidence of urinary tract infection, patient received 1 dose of IV Rocephin in the hospital she was given a prescription for Ceftin 250 mg twice daily 7 days at the time of discharge 4. Underlying history of paroxysmal atrial fibrillation 5. Underlying history of sick sinus syndrome status post pacemaker placement 6. Underlying history of abdominal aortic aneurysm measuring 4.4 cm this will need to be followed as outpatient 7. Hyponatremia will recheck labs, sodium went up to 133 on 05/24/2020 Hospital course: Kourntey Moss, is an 84-year-old female who presented to [facility] emergency room with a chief complaint of back pain patient stated that she fell backward off of a step stool and landed on her back she denies any loss of consciousness she was having severe pain in the lumbar area she called EMS and was brought into emergency room. Patient was evaluated in emergency room vital examination on presentation revealed a temperature of 97.6 pulse 86 respirations 17 blood pressure 138/74 pulse ox 90% on room air, laboratory data revealed a white blood count of 15.1 hemoglobin 13.3 platelet count 252 sodium 128 potassium 3.6 chloride 97 glucose 138 BUN 15 creatinine 0.61 urine analysis revealed small blood with small leukocyte esterase and 8 white blood cells in high power field. And of the brain and the cervical spine did not reveal any acute abnormality, chest x-ray did not reveal any abnormality, lumbar spine x- ray and computed tomography scan of the lumbar spine revealed evidence of subacute compression fracture of L1, also incidentally revealed an enlarging abdominal aortic aneurysm up to 4.4 cm. Patient was admitted to the hospital under orthopedic surgery medical consultation was requested for management while hospitalized. Her past medical history is significant for history of hypertension, history of atrial fibrillation, history of abdominal aortic aneurysm noted since 2016, h istory of sick sinus syndrome with history of pacemaker placement. Patient stated that she has one alcoholic cocktail daily and she smokes a few cigarettes per day. On review of system patient is complaining of low back pain otherwise she denies any complaints there is no fever or chills no headache or dizziness no chest pain no shortness of breath no cough no nausea or vomiting no abdominal pain no diarrhea no blood in the stools no burning with urination no frequency or urgency and no hematuria. On 05/24/2020 patient was seen and examined on the medical floor she is alert and oriented 3 in no apparent distress she is feeling well she is complaining of mild pain in her lower back otherwise she denies any complaints at this time, there is no fever or chills no headache or dizziness no chest pain no shortness of breath no cough no nausea or vomiting no abdominal pain no diarrhea no blood in the stools no burning with urination no frequency or urgency and no hematuria and was evaluated by orthopedic surgery today and plan is for discharge to home today. Objective - Vital Signs Vital signs: Vital Signs Temp 99.0 F 05/24/20 08:00 Pulse 83 05/24/20 08:00 Resp 16 05/24/20 08:00 BP 149/68 05/24/20 08:00 Pulse Ox 90 L 05/24/20 08:00 Intake & Output 05/23/20 05/24/20 05/24/20 18:59 06:59 18:59 Other: Voiding Method Toilet # Voids 6 2 - Labs CBC & Chem 7: 05/24/20 10:12 05/24/20 10:12 Labs: Abnormal Lab Results - Last 24 Hours (Table) 05/24/20 05/24/20 Range/Units 10:12 10:12 WBC 11.4 H (3.8-10.6) k/uL Neutrophils # 9.2 H (1.3-7.7) k/uL Sodium 133 L (137-145) mmol/L Glucose 111 H (74-99) mg/dL
== END 2020-05-24 14:29 | disposition home health service (06) ==
LOC: EC 15:03 → 4SSUR 19:31
PROVIDERS: ADMIT Orthopaedic Surgery; ATTEND Orthopaedic Surgery
DX: S32.019A Unspecified fracture of first lumbar vertebra, initial encounter for closed fracture (principal); R11.0 Nausea; T50.905A Adverse effect of unspecified drugs, medicaments and biological substances, initial encounter; I48.0 Paroxysmal atrial fibrillation; J44.9 Chronic obstructive pulmonary disease, unspecified; I10 Essential (primary) hypertension; I45.19 Other right bundle-branch block; I71.4 Abdominal aortic aneurysm, without rupture; I49.5 Sick sinus syndrome; F17.210 Nicotine dependence, cigarettes, uncomplicated; N39.0 Urinary tract infection, site not specified; E87.1 Hypo-osmolality and hyponatremia; M40.299 Other kyphosis, site unspecified; Z98.890 Other specified postprocedural states; Z79.01 Long term (current) use of anticoagulants; Z79.899 Other long term (current) drug therapy; Z79.51 Long term (current) use of inhaled steroids; Z91.041 Radiographic dye allergy status; Z88.2 Allergy status to sulfonamides; Z88.8 Allergy status to other drugs, medicaments and biological substances; Z90.710 Acquired absence of both cervix and uterus; Z95.0 Presence of cardiac pacemaker; W11.XXXA Fall on and from ladder, initial encounter; Y92.019 Unspecified place in single-family (private) house as the place of occurrence of the external cause; Y92.230 Patient room in hospital as the place of occurrence of the external cause
CPT/HCPCS: 96376 ×2; 96365; 96375; 99285; 36415; 94640; 93005; 97161; 86900; 86901; 80053 ×2; 83605; 84484; 85025 ×2; 85610; 85730; 86850; 81001; 80306; 72100; 72170; 71045; 72125; 72131; 70450; G0378 ×3; L0120; G0480; J2405 ×2; J0696; J3010; 80320

== ENCOUNTER → 2020-07-27 | Outpatient (CLI) | payer MEDICARE, BC ==
--- NOTE | 2020-07-27 14:40 | CT ---
EXAMINATION TYPE: CT thoracic spine wo con, CT lumbar spine wo con DATE OF EXAM: 07/27/2020 COMPARISON: Lumbar spine 05/23/2020 HISTORY: Thoracic spine pain (accession [id number]), Thoracic spine pain, to include lumbar (accession [id number]) CT DLP: 402.60 (accession [id number]), 340.60 (accession [id number]) mGycm Unenhanced CT of the thoracic and lumbar spine was performed. Bone and soft tissue window settings a re submitted as well as coronal and sagittal reconstructions. Again redemonstrated is severe compression fracture of the L1 vertebral body with loss of height melina mated at 80%. There is bony retropulsion which has progressed slightly in the interval and currently is estimated at 8 mm versus 6.6 mm previously. There is effacement of the ventral thecal sac and mild ventral cord contact is difficult to exclude. No new fractures are identified of the thoracic or lum bar spine. There is a 4 mm anterolisthesis L5 on S1. Mild degenerative narrowing noted at L5-S1. Thor acic spine segments are intact with mild scattered degenerative disc space narrowing seen. Spondylosi s. IMPRESSION: 1. L1 compression fracture with bony retropulsion which appears to have increased slightly in the int erval. Ventral cord contact difficult to exclude. No additional fracture seen.
== END | disposition home or self-care (01) ==
LOC: RADCTMAIN 13:32
PROVIDERS: ATTEND Orthopaedic Surgery
DX: S32.019A Unspecified fracture of first lumbar vertebra, initial encounter for closed fracture (principal)
CPT/HCPCS: 72128; 72131